=== PATIENT | female | born 1950 | race Two or more races ===

== ENCOUNTER 2024-03-27 09:22 | Emergency (ER) | payer MEDICARE, SELFPAY ==
[2024-03-27 09:24] VITALS: BP 134/64
--- NOTE | 2024-03-27 09:50 | ED.GENMED ---
History of Present Illness
<Toña Daniel PA-C - Last Filed: 03/27/24 17:31>
General
Chief Complaint: Urinary Symptoms
Source: patient
Exam Limitations: none
Time Seen by Provider: 03/27/24 09:49
Nursing documentation reviewed up to this point in time: agreed with
History of Present Illness
History of Present Illness:
73-year-old female presenting to the emergency department today with concerns of persistent urinary symptoms for a month. Patient reports that at the beginning of the month, she started develop burning with urination, urinary frequency, and lower
abdominal pain. Patient was seen by her primary care provider and a urinalysis was performed with urine culture. Patient was started on a course of Macrobid. Patient also was started on Azo. Patient reports that the course of Bactrim and Azo did
not resolve her symptoms. Patient denies fevers or chills, flank pain, blood in her urine. Patient states that when she gets UTIs she will usually have lower abdominal pain associated with it. Patient denies any nausea or vomiting. Patient
states that the Bactrim made her stomach more upset and so she only had 3 or so doses of this. Patient denies chest pain or shortness of breath, lightheadedness or dizziness. Patient denies any diarrhea or constipation. Of note, patient does have
a history of persistent abdominal pain in the past. She had a workup 2 years ago [facility] was evaluated by gastroenterology with unremarkable workup who suspect she might have a visceral hypersensitivity.
Past History
<Toña Daniel PA-C - Last Filed: 03/27/24 17:31>
Past History
ED Past Medical History: Cancer, Hypothyroidism and Other
ED Past Surgical History: Other
Social History
Alcohol: Occasional
Personal:
Living: with family
Review of Systems
<Toña Daniel PA-C - Last Filed: 03/27/24 17:31>
Review of Systems
All Other Systems: ROS reviewed and negative except as documented in HPI and ROS
Phy Exam
<Toña Daniel PA-C - Last Filed: 03/27/24 17:31>
Physical Exam
Physical Exam:
General: Patient is well appearing and in no acute distress; non-toxic
Skin: Warm and dry, no rashes or lesions
Head: Normocephalic, atraumatic
Eyes: Sclera non-icteric. EOMs intact. PERRLA.
Cardiac: Regular rate and rhythm, no murmurs
Peripheral Vascular: No lower extremity swelling or edema
Pulm: Normal respiratory effort
Abdomen: Abdomen is nondistended with no abdominal tenderness to palpation, no palpable masses
Neuro: CN II-XII intact, no focal neurologic deficits.
Psychiatric: Appropriate mood and affect.
Course
<Toña Daniel PA-C - Last Filed: 03/27/24 17:31>
Orders/Labs/Results
Orders:
Orders
03/27/24 09:55
Urinalysis Reflex To Culture Urgent
Date Specimen was Collected: 03/27/24
Time Specimen was Collected: 09:36
Urine Microscopic Reflex Cult Urgent
Urine Culture Urgent
KUSUM Source: U
Specimen Description:
Date Specimen was Collected: 03/27/24
Time Specimen was Collected: 09:36
03/27/24 10:19
Complete Blood Count/With Diff Urgent
Comprehensive Metabolic Panel Urgent
Lipase Urgent
Abnormal Lab Results
03/27/24 03/27/24
09:55 10:19
RBC 3.74 L 10^6/uL
(4.20-5.40)
Hct 36.0 L %
(37.0-47.0)
MCH 32.1 H pg
(27.0-31.0)
Monocytes % 9.8 H %
(1.7-9.3)
Urine Nitrite (Reflex) Positive A
(Negative)
Urine Bilirubin 2+ A
(Negative)
Urine Urobilinogen 3+ A
(Neg - 1+)
Urine Bacteria (Reflex) Few A
(Negative)
03/27/24 10:19
03/27/24 10:19
Vital Signs
Initial and Last Documented VS:
Initial Vital Signs
Temp Pulse Resp BP Pulse Ox
98.0 F 72 18 134/64 98
03/27/24 09:24 03/27/24 09:24 03/27/24 09:24 03/27/24 09:24 03/27/24 09:24
Last Documented Vital Signs
Temp Pulse Resp BP Pulse Ox
98.5 F 62 15 117/65 99
03/27/24 10:28 03/27/24 10:28 03/27/24 10:28 03/27/24 11:00 03/27/24 11:30
<Wen Galarza MD - Last Filed: 03/27/24 11:07>
Orders/Labs/Results
Orders:
Orders
03/27/24 09:55
Urinalysis Reflex To Culture Urgent
Date Specimen was Collected: 03/27/24
Time Specimen was Collected: 09:36
Urine Microscopic Reflex Cult Urgent
Urine Culture Urgent
KUSUM Source: U
Specimen Description:
Date Specimen was Collected: 03/27/24
Time Specimen was Collected: 09:36
03/27/24 10:19
Complete Blood Count/With Diff Urgent
Comprehensive Metabolic Panel Urgent
Lipase Urgent
Abnormal Lab Results
03/27/24 03/27/24
09:55 10:19
RBC 3.74 L 10^6/uL
(4.20-5.40)
Hct 36.0 L %
(37.0-47.0)
MCH 32.1 H pg
(27.0-31.0)
Monocytes % 9.8 H %
(1.7-9.3)
Urine Nitrite (Reflex) Positive A
(Negative)
Urine Bilirubin 2+ A
(Negative)
Urine Urobilinogen 3+ A
(Neg - 1+)
Urine Bacteria (Reflex) Few A
(Negative)
03/27/24 10:19
03/27/24 10:19
Vital Signs
Initial and Last Documented VS:
Initial Vital Signs
Temp Pulse Resp BP Pulse Ox
98.0 F 72 18 134/64 98
03/27/24 09:24 03/27/24 09:24 03/27/24 09:24 03/27/24 09:24 03/27/24 09:24
Last Documented Vital Signs
Temp Pulse Resp BP Pulse Ox
98.5 F 62 15 117/65 99
03/27/24 10:28 03/27/24 10:28 03/27/24 10:28 03/27/24 11:00 03/27/24 11:30
Dejuanlt;Toña Daniel PA-C - Last Filed: 03/27/24 17:31>
MDM/Problems Addressed
Differential Diagnosis Includes:
Differentials include acute cystitis, pyelonephritis, nephrolithiasis, interstitial cystitis
MDM/Problems Addressed:
Pelvic pain, burning with urination:
73-year-old female presenting to the emergency department today with concerns of persistent urinary symptoms for a month. Patient reports that at the beginning of the month, she started develop burning with urination, urinary frequency, and lower
abdominal pain. Patient was seen by her primary care provider and a urinalysis was performed with urine culture. Patient was started on a course of Macrobid. Patient also was started on Azo. At the time that the Macrobid was started, patient
had an outpatient urinalysis by her family doctor which resulted in mixed genital ilene which were not indicative of a urinary tract infection. (see update note).
She was subsequently seen by an urgent care provider who put her on Bactrim and at that time, the urinalysis did not suggest UTI (see scanned urgent care document from visit on 03/22/2024). On exam today, she is very well appearing and has no
abdominal tenderness to palpation. She is afebrile and her vitals are stable. Urine culture sent off. CBC/CMP show no leukocytosis, no LFT elevation. Of note, on review of previous records, patient has been evaluated multiple times for chronic
abdominal pain in the past, with largely unremarkable workup. Today, her urinalysis shows bilirubinuria but is not suggestive of UTI. I doubt an infectious cause to her symptoms. Interstitial cystitis is definitely on the differential for her. I
discussed with patient and son urology/urogyn evaluation. Patient in agreement. Patient stable for discharge.
Chronic conditions affecting care:
chronic abdominal pain, GERD, hypothyroidism, anemia
<Toña Daniel PA-C - Last Filed: 03/27/24 17:31>
*Pulse Oximetry
Patient hypoxic: no
*Critical Care Note
Total Time (30-74mins, 75-104mins- exclusive of procedures): Not Applicable
Data Reviewed
Review of Other/Old Records Reveals: Records (Reviewed discharge summary from 11/27/2021) and Discharge Summary (Reviewed recent discharge summary from 11/29/2021)
Source: patient and records
<Toña Daniel PA-C - Last Filed: 03/27/24 17:31>
Patient Management
Escalation/DeEscalation of care consider admission/obs:
Admit not indicated, patient stable for discharge
<Toña Daniel PA-C - Last Filed: 03/27/24 17:31>
Update Note
Update Note:
ED Attending Note
<Toña Daniel PA-C - Last Filed: 03/27/24 17:31>
-
Portions of this chart may have been created with voice recognition software.� Occasional wrong word or��sound alike� substitutions may have occurred due to the inherent limitations of voice recognition software.
<Wen Galarza MD - Last Filed: 03/27/24 11:07>
ED Attending Note
Patient seen and examined by attending physician: Yes
I performed the substantive portion of visit, reviewed & personally made and approve the management plan that is documented in note by myself or OMER.: Yes
ED Attending Note:
73-year-old female with complaints of persistent dysuria for several weeks. She saw her primary care doctor and was prescribed Macrobid without relief. She was then prescribed Azo without relief. She then went to an urgent care and was prescribed
Bactrim which she finished in completely. She continues to complain of dysuria, but denies urgency, frequency, fever, chills, nausea, vomiting, back or flank pain, hematuria. Patient also states that she has persistent upper abdominal pain for at
least several weeks if not longer. She has had an extensive workup including endoscopy without specific etiology identified. She was put on a PPI without relief of symptoms. Pain seems to be worse at night. On exam, abdomen soft nontender, heart
regular rate and rhythm, lungs CTA. Patient extremely well-appearing and nontoxic. Culture results from PCP unremarkable for actual UTI. Suspect dysuria not related to infection given unremarkable urine here as well as in the most recent past, no
CVA tenderness, fever, etc. to suggest ascending infection. Symptoms do not appear to be consistent with kidney stone or other acute intra-abdominal pathology. No pain or tenderness at this time, complaints have been relatively chronic. Discussed
with patient importance of follow-up and reasons to return to the ER.
Discharge Plan
Departure
Patient Disposition: Home (Routine Discharge)
Date of Disposition: 03/27/24
Time of Disposition: 11:13
Patient with high blood pressure during this ER visit?: Yes
Condition: Good
Discharge Problem:
Bladder spasm
Instructions: Pelvic Pain, BLOOD PRESSURE
Prescriptions:
No Action
gabapentin 300 MG capsule
300 mg PO BID
thyroid (pork) [[place] Thyroid] 30 MG tablet
30 mg PO DAILY
ergocalciferol (vitamin D2) 8,000 UNITS/ML drops
50,000 units PO SUWE Qty: 24 0RF
Rx Instructions:
2x weekly
sucralfate 1 GRAM tablet
1 g PO ACHS Qty: 12 0RF
pantoprazole 40 MG tablet,delayed release (DR/EC)
40 mg PO BID Qty: 60 0RF
Rx Instructions:
bid for 2 weeks then daily
gabapentin 300 MG capsule
600 mg PO HS
acetaminophen 325 MG tablet
650 mg PO BID
dicyclomine 10 MG capsule
10 mg PO TID
oxycodone 5 MG tablet
5 mg PO PRN PRN (Reason: Pain)
Referrals:
Pedrito Medina MD [Active] - Call in 1-3 days for appt
Leif Dior MD [Family Provider] -
Activity Restrictions/Additional Instructions:
We have attached a number for [facility]. Please call to schedule a follow up appointment.
You can also try calling [facility] at [phone].
Please return to the emergency department should you develop fevers or chills, intractable vomiting, blood in your urine, chest pain, shortness of breath, dizziness, lightheadedness, or any other signs or symptoms concerning to you.
Please follow-up with your primary care provider.
Interventions
Interventions:
*Risk Screen - Suicide Last Done: 03/27/24 09:27
*General Assessment Last Done: 03/27/24 09:27
*Neglect/Abuse Screening Last Done: 03/27/24 09:27
ED- Fall Risk Assessment Last Done: 03/27/24 10:28
*ED COVID-19 Vaccine History Last Done: 03/27/24 09:27
*Nursing Disposition Last Done: 03/27/24 11:19
ED-Female Genitourinary Assessment Last Done: 03/27/24 10:28
Discharge Date and Time
Discharge Date/Time: 03/27/24 11:56
Print Language: TURKMEN
[2024-03-27 10:11] LABS: Urine Albumin Negative (Neg - Trace); Urine Bilirubin 2+ (Negative); Urine Character Clear (Clear); Urine Glucose Negative (Negative); Urine Ketone Negative (Negative); Urine Leukocyte Negative (Negative); Urine Nitrite Positive (Negative); Urine Occult Blood Negative (Negative); Urine Urobilinogen 3+ (Neg - 1+)
[2024-03-27 10:23] LABS: Urine Color Orange
[2024-03-27 10:28] VITALS: BP 131/63; BMI 23.7
[2024-03-27 10:37] LABS: % Basophils 0.6 % (0-2); % Eosinophils 2.1 % (0-6); % Immature Granulocytes 0.2 % (0-0.5); % Lymphocytes 40.1 % (20.5-51.1); % Monocytes 9.8 % (1.7-9.3); % Neutrophils 47.2 % (42.2-75.2); Absolute Eosinophils 0.1 10^3/uL (0-0.7); Absolute Lymphocytes 2.1 10^3/uL (1.2-3.4); Absolute Monocytes 0.5 10^3/uL (0.1-0.6); Absolute Neutrophils 2.5 10^3/uL (1.4-6.5); Mean Corp Hgb Conc. 33.3 g/dL (33.0-37.0); Mean Corpuscular Hgb 32.1 pg (27.0-31.0); Mean Corpuscular Volume 96.3 fL (81.0-99.0); Mean Platelet Volume 9.3 fL (7.4-10.4); Nucleated Red Blood Cells % 0 %; Platelet Count 251 10^3/uL (130-400); Red Blood Cell Count 3.74 10^6/uL (4.20-5.40); Red Cell Dist. Width 12.4 % (11.5-14.5); White Blood Cell Count 5.2 10^3/uL (4.8-10.8)
[2024-03-27 10:46] LABS: Urine Amorphous Seen; Urine Squamous Cell 0-2 /LPF (Few)
[2024-03-27 10:47] LABS: Urine Bacteria Few (Negative); Urine Red Blood Cell 0-2 /HPF (0-2); Urine White Cell 0-2 /HPF (0-5)
[2024-03-27 10:56] LABS: ALT (SGPT) 13 U/L (0-35); AST (SGOT) 26 U/L (14-36); Albumin 4.1 g/dl (3.5-5.0); Alkaline Phosphatase 71 U/L (38-126); Blood Urea Nitrogen 12 mg/dl (7-17); Calcium 9.6 mg/dl (8.4-10.2); Carbon Dioxide 28 mmol/L (22-30); Chloride 107 mmol/L (98-107); Estimated Creatinine Clearance 43 ml/min; Glucose 77 mg/dl (70-99); Lipase 179 U/L (23-300); Potassium 4.4 mmol/L (3.5-5.1); Sodium 139 mmol/L (135-145); Total Bilirubin 0.7 mg/dl (0.2-1.3); Total Protein 6.6 g/dl (6.3-8.2); eGFR 59.12
[2024-03-27 11:00] VITALS: BP 117/65
== END 2024-03-27 11:56 | disposition home or self-care (01) ==
LOC: EMR 09:22
PROVIDERS: Physician Assistant; EMERGENCY PHYSICIAN Emergency Medicine; FAMILY PHYSICIAN Internal Medicine
DX: N32.89 Other specified disorders of bladder (principal); R03.0 Elevated blood-pressure reading, without diagnosis of hypertension
CPT/HCPCS: 99283; 80053; 81003; 81015; 83690; 85025; 87086

== ENCOUNTER → 2024-09-21 10:30 | Outpatient (REF) | payer MEDICARE, SELFPAY | LOC: RAD 10:30 | PROVIDERS: ATTENDING PHYSICIAN Urology; FAMILY PHYSICIAN Internal Medicine | DX: R30.0 Dysuria (principal); R10.9 Unspecified abdominal pain; R10.2 Pelvic and perineal pain | CPT/HCPCS: 74176 ==

== ENCOUNTER → 2025-04-11 11:04 | Outpatient (REF) | payer MEDICARE, SELFPAY | LOC: PAVMRI 11:04 | PROVIDERS: ATTENDING PHYSICIAN Orthopaedic Surgery; FAMILY PHYSICIAN Internal Medicine | DX: M54.12 Radiculopathy, cervical region (principal); M25.512 Pain in left shoulder; M25.511 Pain in right shoulder | CPT/HCPCS: 72141; 73221 ==

== ENCOUNTER 2025-04-18 11:04 | Outpatient (RCR) | payer MEDICARE, SELFPAY | END 2025-04-18 23:59 | disposition home or self-care (01) | LOC: RPT 11:04 | PROVIDERS: ATTENDING PHYSICIAN Urology; FAMILY PHYSICIAN Internal Medicine | DX: N32.81 Overactive bladder (principal); N30.10 Interstitial cystitis (chronic) without hematuria; M62.89 Other specified disorders of muscle; Z73.6 Limitation of activities due to disability; M81.0 Age-related osteoporosis without current pathological fracture; Z85.3 Personal history of malignant neoplasm of breast | CPT/HCPCS: 97110; 97140; 97161; 97530 ==

== ENCOUNTER 2025-05-13 14:06 | Outpatient (RCR) | payer MEDICARE, SELFPAY | END 2025-05-13 23:59 | disposition home or self-care (01) | LOC: RPT 14:06 | PROVIDERS: ATTENDING PHYSICIAN Urology; FAMILY PHYSICIAN Internal Medicine | DX: N32.81 Overactive bladder (principal); N30.10 Interstitial cystitis (chronic) without hematuria; M62.89 Other specified disorders of muscle; Z73.6 Limitation of activities due to disability; M81.0 Age-related osteoporosis without current pathological fracture; Z85.3 Personal history of malignant neoplasm of breast | CPT/HCPCS: 97110; 97140; 97530 ==

== ENCOUNTER → 2025-06-30 11:18 | Outpatient (REF) | payer MEDICARE, SELFPAY ==
[2025-06-30 12:02] LABS: Urine Character Clear (Clear)
[2025-06-30 12:09] LABS: Urine Squamous Cell >30 /LPF (Few)
== END ==
LOC: REG 11:18
PROVIDERS: ATTENDING PHYSICIAN Urology
DX: N39.0 Urinary tract infection, site not specified (principal)
CPT/HCPCS: 81003; 81015; 87086

== ENCOUNTER 2025-07-03 12:20 | Inpatient (IN) | payer MEDICARE, SELFPAY ==
--- NOTE | 2025-06-13 13:55 | CM ---
CM reviewed medical records. CM left message to discuss IA.
[2025-06-23 11:22] LABS: Hematocrit 36.4 % (37.0-47.0); Hemoglobin 11.5 g/dL (12.0-16.0); Mean Corp Hgb Conc. 31.6 g/dL (33.0-37.0); Mean Corpuscular Volume 97.6 fL (81.0-99.0); Platelet Count 266 10^3/uL (130-400); Red Cell Dist. Width 12.5 % (11.5-14.5)
[2025-06-23 11:35] LABS: ALT (SGPT) 16 U/L (0-35); AST (SGOT) 25 U/L (14-36); Albumin 4.2 g/dl (3.5-5.0); Alkaline Phosphatase 64 U/L (38-126); Blood Urea Nitrogen 14 mg/dl (7-17); Calcium 9.2 mg/dl (8.4-10.2); Carbon Dioxide 27 mmol/L (22-30); Chloride 108 mmol/L (98-107); Glucose 95 mg/dl (70-99); Potassium 5.1 mmol/L (3.5-5.1); Sodium 139 mmol/L (135-145); Total Protein 7.0 g/dl (6.3-8.2); eGFR > 60.00
[2025-06-23 12:01] LABS: Glycohemoglobin (HgbA1c) 5.4 % (4.0-5.9)
[2025-06-23 13:17] LABS: Iron 83 ug/dl (37-170)
[2025-06-23 13:26] LABS: Total Iron Binding Capacity 427 ug/dl (265-497)
[2025-06-23 14:36] LABS: Ferritin 15.8 ng/ml (11.1-264.0)
[2025-06-23 15:07] LABS: Folate 8.9 ng/ml (2.76-20); Vitamin B12 411 pg/ml (239-931)
[2025-07-03] VITALS (12 sets, daily range): BP systolic 114–180; BP diastolic 56–103
[2025-07-03] MEDS: CELEBREX 200 MG PO (11:38)
[2025-07-03] MEDS: TYLENOL 650 MG PO ×3 (11:38→19:40)
[2025-07-03] MEDS: NORMOSOL-R/PLASMALYTE-A 1000 IV ×2 (11:59→17:34)
--- NOTE | 2025-07-03 14:34 | W.PN.UPDATE ---
Update Note
Progress Note Update
R knee OA s/p R TKA w/ Dr Cisneros 07/03/25
DVT prophylaxis - enteric coated ASA 81 mg PO BID x4 weeks, b/l venous foot pumps
GERD with recurrent gastritis and Hiatal hernia - continue PPI BID
- Reduce ASA for DVT prophylaxis from 325 mg daily to 81 mg BID
- No other NSAIDs, Celebrex, or Decadron
- Will advise to take meds w/ food
Peripheral neuropathy - continue home Gabapentin
- Consider switch to Lyrica
Chronic multifactorial anemia - non-invasive hgb in AM
OA with L lateral condyle fracture, status post L TKA, 08/2021, by Dr Cisneros
Hypothyroidism
Left-sided breast cancer, 2007, status post left lumpectomy with lymph node dissection, chemotherapy, and radiation
Left upper extremity lymphedema secondary to the above
Osteoporosis
--- NOTE | 2025-07-03 15:40 | CM ---
CM was called to [facility] waiting room. Patient's stated that she feels he cannot care for her at home and is requesting placement.
CM sent preliminary referrals Z[facility] Julian, [facility] and [facility].
CM will await PT/OT evaluation.
PLAN: SNF, pending PT/OT.
[2025-07-03] MEDS: ROXICODONE 5 MG PO ×2 (16:25→18:21)
--- NOTE | 2025-07-03 17:11 | PTCARENOTE ---
Patient admitted from pacu post right total knee arthroplasty.The patient is alert and oriented.e denies any pain.Neurovascular assessment is within normal limits and ongoing.The right knee dressing is intact without drainage. Vital signs are
stable.The patient is in her bed with the call jerez in place.
[2025-07-03] MEDS: VITAMIN D3 (cholecalciferol) 25 MCG PO (17:34)
[2025-07-03] MEDS: NEURONTIN 300 MG PO ×2 (17:34→21:57)
[2025-07-03] MEDS: ARMOUR THYROID 30 MG PO (17:35)
[2025-07-03] MEDS: MAALOX 30 ML PO (18:32)
--- NOTE | 2025-07-03 19:04 | OR.RPT ---
Operative Report
Operative Report
Orthopaedic Surgery Operative Note
DATE OF OPERATION: 07-03-2025
PREOPERATIVE DIAGNOSES: Osteoarthritis, right knee.
POSTOPERATIVE DIAGNOSES: Osteoarthritis, right knee.
OPERATION PERFORMED:
1) Right total knee arthroplasty (CPT 45168)
2) Intraosseous administration of analgesic (CPT 32440)
SURGEON: Rob Cisneros MD
ASSISTANTS: Kalpesh Christie PA-C who helped with patient and limb positioning and retraction
ANESTHESIA: Spinal by anesthesia plus intraoperative infusion of morphine into the tibial metaphysis by Dr. Cisneros
COMPLICATIONS: None.
ESTIMATED BLOOD LOSS: 20mL
DRAINS: None
TOURNIQUET TIME: 50 minutes.
IMPLANTS:
- Jeffrey Persona CR Femur, size 4
- Jeffrey Persona tibia base plate, size A
- Jeffrey Persona ultracongruent articular surface, 10 mm
- DJO [place] bone cement
INDICATIONS: The patient presented to my office with debilitating right knee pain due to osteoarthritis. We reviewed the natural history of this problem, as well as the risks, benefits, and alternatives of various treatment options. The patient
exhausted all nonoperative treatment options and wished to proceed with knee replacement surgery. The patient understood the risks which included, but were not limited to, bleeding, infection, failure to relieve pain, more pain than preop, damage to
blood vessels and nerves, need for reoperation, mechanical failure of the implants, wound healing problems, stiffness, instability, blood clot, pulmonary embolism, myocardial infarction, pneumonia, arrhythmia, CVA, and . The patient accepted
these risks and wished to proceed. All questions were answered, and informed consent was obtained.
PROCEDURE IN DETAIL: The patient was identified in the preoperative holding area. The right knee was identified as the operative site. The patient was taken in the operating room and placed in a supine position on the operating table. Spinal
anesthesia was performed. IV antibiotics and tranexamic acid were administered. An SCD was placed on the left lower extremity. A well-padded tourniquet was placed on the proximal thigh. All bony prominences were well padded. The right lower
extremity was prepped and draped in the usual sterile fashion.
We performed a surgical time-out. An interarticular block was performed with local anesthetic with epinephrine. The limb was exsanguinated with an Esmarch bandage, then the tourniquet was inflated to 250 mmHg. I performed interosseous administration
of morphine-saline solution via a Jamshidi style intraosseous needle into the proximal medial tibial metaphysis as described by Shola Petersen MD. This was performed to aid in pain control. A midline skin incision was made followed by a medial
parapatellar arthrotomy. A subperiosteal peel was performed on the medial tibia. I excised part of the infrapatellar fat pad to improve our visualization as well as tissue over anterior femur. The patella was everted and the knee was flexed. I
excised the remnants of the anterior and posterior cruciate ligaments as well as tibial and femoral osteophytes with rongeurs.
The knee was flexed, and the extramedullary tibial cutting guide was aligned. [place] was aligned at neutral, rotation was centered on the tibial tubercle, and coronal alignment was aligned with the mechanical axis of the tibia and center of the ankle
joint. The cut height was 2mm off the medial tibia joint surface. The guide was secured into place. The MCL and LCL were protected. The tibia surface was cut. The cut surface was inspected after removal to ensure appropriate height and slope based
on the preoperative plan. The cut was checked with a drop millie. It was centered nicely at the ankle.
A drill was used to open the femoral canal. The intramedullary distal femoral cutting guide was inserted into the femur. This was set at 5 degrees +0. This was secured into place with three pins. The cut level was checked with an santo wing. The
distal femur was cut through the cutting guide. The IM guide was reinserted to double check that the level of resection was flush and in appropriate alignment.
[place]�s line and the transepicondylar axis were marked on the femur. The femoral sizing guide was applied to the anterior femur. Pins were inserted, and the 4-in-1 cutting guide was applied and secured into place. The rotation was compared to
[place]�s line, the transepicondylar axis, and the neutral tibia cut and was found to be appropriate. The width was checked and found to be appropriate and lateralized on the femur. The anterior, posterior, and chamfur cuts were made. A lamina
forklift supervisor was used to open the flexion gap, and posterior osteophytes were removed with a curved osteotome. The remnant medial and lateral meniscus were also removed. I prophylactically cauterized the lateral geniculate arteries. A 10mm spacer block
was applied to the flexion gap and was noted to be balanced medially and laterally. The knee was extended, and the block showed symmetric to extension and flexion gaps.
The tibia was exposed and sized. Rotation was set in line with the tibial tubercle and congruent with the femur. The trial was secured into place with two pins. The trial femur was impacted into place, and a trial articular surface was placed. The
knee was taken through range of motion and noted to be stable throughout the arc of motion without gaping or excess tension. The patella tracked centrally throughout the arc of motion without need for further releases. No full thickness cartilage
defects.
The trials were removed. The tibia keel was prepared with the punch and the drill. The bone surfaces were irrigated with sterile saline and dried. The cement was mixed in a vacuum mixer. Cement gun was used to apply cement to the tibial surface and
the undersurface of the tibial implant. Cement was pressurized into the tibial canal and tibia surface. The tibial component was impacted into place. Excess cement was removed. Cement was applied to the femoral surface and the femoral component. The
femoral component was impacted into place, and excess cement removed. A trial articular surface was inserted, and the knee was extended while the cement polymerized. The tourniquet was let down, and meticulous hemostasis was achieved. Dilute
betadine was poured into the wound and allowed to soak for 3 minutes. The knee was irrigated with copious normal saline.
Once the cement was polymerized, the trial articular surface was removed. Any excess cement was removed. The knee was trialed, and the final articular surface was selected and inserted into the tibial locking mechanism. The knee was reduced. A fresh
drape was applied to the surgical field.
The arthrotomy was closed with 0-PDS. Once closed, an interarticular block was performed with local anesthetic with epi. The deep dermal layer was closed with 2-0 monofilament, and the subcuticular skin was closed with 3-0 monofilament. A Dermabond
Prineo dressing was applied to the skin in full flexion. Once this was completely dry, a sterile waterproof dressing was applied.
The anesthesia team performed an adductor canal block in the OR. The patient awoke from anesthesia without any difficulties. The sponge and instrument counts were correct x2 at the end of the case.
Tomi Cisneros MD
[2025-07-03] MEDS: PROTONIX 40 MG PO (19:40)
[2025-07-03] MEDS: COLACE 100 MG PO (19:40)
[2025-07-03] MEDS: BACTROBAN 2% OINTMENT 1 APPLIC NASAL (19:40)
[2025-07-03] MEDS: SENOKOT 17.2 MG PO (19:40)
[2025-07-03] MEDS: ANCEF 5 IV (19:41)
[2025-07-03] MEDS: ASPIR LOW (ENTERIC COATED) 81 MG PO (19:41)
[2025-07-03] MEDS: DILAUDID 0.5 MG IV (19:41)
[2025-07-03] MEDS: TYLENOL PO (23:08)
[2025-07-04] VITALS (8 sets, daily range): BP systolic 105–110; BP diastolic 48–63; PULSE 92
[2025-07-04] MEDS: ANCEF 5 IV (03:09)
[2025-07-04] MEDS: TYLENOL PO (03:10)
[2025-07-04] MEDS: ROXICODONE 5 MG PO ×3 (08:31→23:14)
[2025-07-04] MEDS: SENOKOT 17.2 MG PO (08:31)
[2025-07-04] MEDS: TYLENOL 650 MG PO ×5 (08:31→23:12)
[2025-07-04] MEDS: NEURONTIN 300 MG PO ×3 (08:31→21:04)
[2025-07-04 08:32] LABS: Hepatitis C Antibody Negative (Negative)
[2025-07-04] MEDS: PROTONIX 40 MG PO ×2 (08:32→20:54)
[2025-07-04] MEDS: ASPIR LOW (ENTERIC COATED) 81 MG PO ×2 (08:32→20:54)
[2025-07-04] MEDS: BACTROBAN 2% OINTMENT 1 APPLIC NASAL ×2 (08:32→20:55)
[2025-07-04] MEDS: VITAMIN D3 (cholecalciferol) 25 MCG PO (08:32)
[2025-07-04] MEDS: ARMOUR THYROID 30 MG PO (08:32)
[2025-07-04] MEDS: COLACE 100 MG PO ×2 (08:32→20:54)
--- NOTE | 2025-07-04 09:09 | CM ---
Addendum entered by Mariela Durham RN 07/04/25 10:33:
CM updated [facility] with PT notes. CM awaiting acceptance.
Original Note:
Patient is agreeable to [facility]. Patient was at [facility] previously and did not have a good experience.
PLAN: SNF, pending acceptance.
--- NOTE | 2025-07-04 09:21 | W.PN.ORTHO ---
Today's Communication / Plan
-
Work w/ PT and OT as able.
D/c to SNF when clinically stable.
Assessment
.
Distal Motor Intact: Yes
Dressing:
Clean, dry and intact.
Assessment:
R knee OA s/p R TKA w/ Dr Cisneros 07/03/25
DVT prophylaxis - enteric coated ASA 81 mg PO BID x4 weeks, b/l venous foot pumps
GERD with recurrent gastritis and Hiatal hernia - continue PPI BID
- Reduce ASA for DVT prophylaxis from 325 mg daily to 81 mg BID
- No other NSAIDs, Celebrex, or Decadron
- Will advise to take meds w/ food
Peripheral neuropathy - continue home Gabapentin
- Consider switch to Lyrica
Chronic multifactorial anemia - non-invasive hgb during admission
OA with L lateral condyle fracture, status post L TKA, 08/2021, by Dr Cisneros
Hypothyroidism
Left-sided breast cancer, 2007, status post left lumpectomy with lymph node dissection, chemotherapy, and radiation
Left upper extremity lymphedema secondary to the above
Osteoporosis
Plan
.
Surgery / Date: R TKA w/ Dr Cisneros 07/03/25
DVT Prophylaxis: Aspirin (EC 81 mg PO BID x4 weeks )
Activity:
Out of bed.
PT/OT
Discharge Plan: SNF
Subjective
.
.:
Patient examined resting in chair after PT/OT.
Reporting high levels of R knee pain; however, appears comfortable.
Denies any new significant complaints.
Eager for potential d/c today.
Vital Signs and Labs
.
Vital Signs and Labs:
Lab Results
06/23/25 10:23
06/23/25 10:23
Temp Pulse Resp BP Pulse Ox
98 F 68 16 107/63 97
07/04/25 07:50 07/04/25 07:50 07/04/25 07:50 07/04/25 07:50 07/04/25 07:50
Physical Exam
-
HEENT: No pallor, cyanosis, or jaundice. Throat clear.
NECK: Supple. No JVD.
RESPIRATORY: Lungs clear to auscultation.
CVS: S1, S2 normal. RRR.
ABDOMEN: Soft, non-tender. No distension.
EXTREMITIES: Expected post-surgical R knee edema. Strength equal, no calf pain with palpation/dorsiflexion. Calves soft.
HELP DESK COORDINATOR: AOx3. No focal deficits. lead press operator grossly intact
--- NOTE | 2025-07-04 11:31 | CM ---
Addendum entered by Mariela Durham RN 07/04/25 11:47:
[facility]
Report
[phone]

Original Note:
Patient has been accepted by [facility].
[2025-07-04] MEDS: SENOKOT PO ×2 (20:54→21:01)
[2025-07-05] MEDS: TYLENOL PO (05:10)
[2025-07-05] MEDS: ROXICODONE 10 MG PO (05:21)
[2025-07-05] MEDS: DILAUDID 0.5 MG IV (06:29)
[2025-07-05 07:25] VITALS: BP 136/67
[2025-07-05] MEDS: VITAMIN D3 (cholecalciferol) 25 MCG PO (08:10)
[2025-07-05] MEDS: PROTONIX 40 MG PO ×2 (08:10→20:48)
[2025-07-05] MEDS: TYLENOL 650 MG PO ×4 (08:10→20:48)
[2025-07-05] MEDS: ASPIR LOW (ENTERIC COATED) 81 MG PO ×2 (08:10→20:48)
[2025-07-05] MEDS: COLACE PO ×3 (08:10→20:49)
[2025-07-05] MEDS: SENOKOT PO ×3 (08:10→20:49)
[2025-07-05] MEDS: ARMOUR THYROID 30 MG PO (08:10)
[2025-07-05] MEDS: NEURONTIN 300 MG PO ×3 (08:10→22:02)
[2025-07-05] MEDS: TORADOL 15 MG IV (10:15)
--- NOTE | 2025-07-05 10:27 | W.PN.ORTHO ---
Today's Communication / Plan
-
POD #[address] Cisneros.
-PT/OT as medically able.
-WBAT with walker.
-Adjusted pain medications to include oral hydromorphone, muscle relaxer q 8 hours, and IV toradol x 1 dose.
-Asp 81 mg po bid for dvt prophylaxis.
-Plan for d/c to [facility] tomorrow.
Assessment
.
Distal Motor Intact: Yes
Dressing:
Clean, dry and intact.
Assessment:
POD #[address] Cisneros.
-PT/OT as medically able.
-WBAT with walker.
-Adjusted pain medications to include oral hydromorphone, muscle relaxer q 8 hours, and IV toradol x 1 dose.
-Asp 81 mg po bid for dvt prophylaxis.
-Plan for d/c to [facility] tomorrow.
Plan
.
Surgery / Date: R TKA w/ Dr Cisneros 07/03/25
DVT Prophylaxis: Aspirin
Activity:
Out of bed.
PT/OT
Discharge Plan: SNF
Subjective
.
.:
Patient in obvious discomfort resting in bed upon my arrival. Despite IV dilaudid and oxy earlier, pain persists. She was able to get up and to the commode, but did not sleep well last night due to pain. States it feels like a cramping sensation
in her knee/thigh. She is unable to take NSAIDs due to GI discomfort. She is reporting some n/t of her right hand, but this is intermittent. She does have right shoulder discomfort and difficulty moving it, which was present before her surgery.
Vital Signs and Labs
.
Vital Signs and Labs:
Lab Results
06/23/25 10:23
06/23/25 10:23
Temp Pulse Resp BP Pulse Ox
98.3 F 82 18 136/67 96
07/05/25 07:25 07/05/25 07:25 07/05/25 07:25 07/05/25 07:25 07/05/25 07:25
Non-invasive Hgb result: 10.7
Physical Exam
-
Right knee: dressing is c/d/i. No drainage. Mild diffuse swelling. ROM 0-90 degrees with discomfort. Calf soft and nontender to palpation. N/v intact distally.
[2025-07-05] MEDS: DILAUDID 2 MG PO ×2 (11:34→18:13)
[2025-07-05] MEDS: LIDOCAINE 4% PATCH 1 PATCH TOPICAL (13:02)
[2025-07-05 15:25] VITALS: BP 106/50
[2025-07-05] MEDS: FLEXERIL 5 MG PO ×2 (16:57→22:02)
[2025-07-05] MEDS: REMOVE LIDOCAINE PATCH 1 PATCH REMOVE (20:49)
[2025-07-05 23:00] VITALS: BP 139/63
[2025-07-06] MEDS: TYLENOL PO ×2 (00:26→04:11)
[2025-07-06 07:45] VITALS: BP 141/90
[2025-07-06] MEDS: LIDOCAINE 4% PATCH 1 PATCH TOPICAL (07:51)
[2025-07-06] MEDS: FLEXERIL 5 MG PO (07:51)
[2025-07-06] MEDS: DILAUDID 2 MG PO (07:51)
[2025-07-06] MEDS: TYLENOL 650 MG PO ×2 (07:52→11:28)
[2025-07-06] MEDS: SENOKOT PO ×2 (07:52→12:27)
[2025-07-06] MEDS: PROTONIX 40 MG PO (07:52)
[2025-07-06] MEDS: COLACE PO ×2 (07:52→12:27)
[2025-07-06] MEDS: ARMOUR THYROID 30 MG PO (07:52)
[2025-07-06] MEDS: VITAMIN D3 (cholecalciferol) 25 MCG PO (07:52)
[2025-07-06] MEDS: ASPIR LOW (ENTERIC COATED) 81 MG PO (07:53)
[2025-07-06] MEDS: NEURONTIN 300 MG PO (07:53)
--- NOTE | 2025-07-06 11:03 | W.PN.ORTHO ---
Today's Communication / Plan
-
POD #[address] Cisneros.
-PT/OT as medically able.
-WBAT with walker.
-Adjusted pain medications to include muscle relaxer q 8 hours, lidocaine patches, and IV toradol x 1 dose.
-Asp 81 mg po bid for dvt prophylaxis.
-Plan for d/c to [facility] today.
Assessment
.
Dressing:
Clean, dry and intact.
Assessment:
POD #[address] Cisneros.
-PT/OT as medically able.
-WBAT with walker.
-Adjusted pain medications to include muscle relaxer q 8 hours, lidocaine patches, and IV toradol x 1 dose.
-Asp 81 mg po bid for dvt prophylaxis.
-Plan for d/c to [facility] today..
Plan
.
Surgery / Date: R TKA w/ Dr Cisneros 07/03/25
DVT Prophylaxis: Aspirin
Activity:
Out of bed.
PT/OT
Discharge Plan: Rehab
Subjective
.
.:
Patient resting comfortably in bed. Pain much better controlled with modifications of muscle relaxer and lidocaine patch.
Vital Signs and Labs
.
Vital Signs and Labs:
Lab Results
06/23/25 10:23
06/23/25 10:23
Temp Pulse Resp BP Pulse Ox
98 F 92 16 141/90 97
07/06/25 07:45 07/06/25 07:45 07/06/25 07:45 07/06/25 07:45 07/06/25 07:45
Non-invasive Hgb result: 11.5
Physical Exam
-
Right knee: moderate swelling. dressing c/d/i. no drainage. ROM 0-80 degrees. Calf soft and non tender to palpation. N/v intact distally.
--- NOTE | 2025-07-06 11:06 | W.DS.TRANS ---
DC Summary - [employer]
-
Discharge Instructions:
Sleep Apnea Risk Low
Discharge Diagnosis/Procedures R knee OA s/p R TKA w/ Dr Cisneros 07/03/25
Diet Regular
Additional Diets Adequate hydration, minimize opioids, and wear
TEDs stockings to prevent low blood pressure/
dizziness.
Activity As tolerated,With Walker
Driving Restrictions Not until seen by your Dr
Bathing Restrictions OK to Shower
Other Services PT,OT
Wound Care Leave dressing on until seen by surgeon's office
for follow-up on 07/16/25 at [place] office
11:00 am
Instructions:
Stand-Alone Forms: Total Hip/Knee Replacement D/C
Changes to Home Medications: No
Discharge Medications:
DC Medications w/original date entered in [facility]
gabapentin 300 mg capsule 300 mg PO TID Neurological Condition 08/05/21
thyroid (pork) 30 mg tablet ([place] Thyroid) 30 mg PO DAILY Thyroid 08/05/21
pantoprazole 40 mg tablet,delayed release 40 mg PO BID #60 tabs 10/31/21
cholecalciferol (vitamin D3) 25 mcg (1,000 unit) tablet (Vitamin D3) 25 mcg PO DAILY Supplement 06/13/25
acetaminophen 325 mg tablet 650 mg (2 x 325 mg) PO Q4HWA #60 tabs 07/04/25
aspirin 81 mg tablet,delayed release 81 mg PO BID #60 tabs 07/04/25
docusate sodium 100 mg capsule 100 mg PO BID #30 caps 07/04/25
magnesium hydroxide 400 mg/5 mL oral suspension (Milk of Magnesia) 30 ml PO HS PRN constipation #3,780 mL 07/04/25
ondansetron HCl 4 mg tablet 4 mg PO Q6H PRN nausea and vomiting #30 tabs 07/04/25
oxycodone 5 mg tablet 5 - 10 mg (1 - 2 x 5 mg) PO Q6H PRN moderate-severe pain #15 tabs 07/04/25
sennosides 8.6 mg tablet (Cecy-kathy) 17.2 mg (2 x 8.6 mg) PO BID #30 tabs 07/04/25
cyclobenzaprine 5 mg tablet 5 mg PO TID PRN muscle spasm 7 days #20 tabs 07/06/25
lidocaine 4 % topical patch 1 patch topical DAILY Pain 30 days 07/06/25
Home Medication Changes
Pending Results: No
[2025-07-06 11:50] VITALS: BP 130/65
--- NOTE | 2025-07-06 12:04 | CM ---
Pt for dc to [facility] today, 1p vegetable picker.
IMM Issued.
== END 2025-07-06 13:18 | DRG 470 ==
LOC: 2 SOUTH 12:20
PROVIDERS: Physician Assistant; ADMITTING PHYSICIAN Orthopaedic Surgery; FAMILY PHYSICIAN Internal Medicine
PROC: 0SRC0J9 Replacement of Right Knee Joint with Synthetic Substitute, Cemented, Open Approach (ICD-10-PCS; 2025-07-03)
DX: M17.11 Unilateral primary osteoarthritis, right knee (principal); K21.9 Gastro-esophageal reflux disease without esophagitis; G62.9 Polyneuropathy, unspecified; I89.0 Lymphedema, not elsewhere classified; D64.9 Anemia, unspecified; E03.9 Hypothyroidism, unspecified; M81.0 Age-related osteoporosis without current pathological fracture; Z98.41 Cataract extraction status, right eye; Z98.42 Cataract extraction status, left eye; Z79.82 Long term (current) use of aspirin; Z88.0 Allergy status to penicillin
CPT/HCPCS: 36415; 73560; 80053; 81003; 81015; 82607; 82728; 82746; 83036; 83540; 83550; 85027; 86803; 86850; 86900; 86901; 87070; 87086; 97116; 97162; 97166; 97535

== ENCOUNTER 2025-08-16 14:41 | Emergency (ER) | payer MEDICARE, SELFPAY ==
[2025-08-16 14:48] VITALS: BP 127/77
--- NOTE | 2025-08-16 17:10 | ED.GENMED ---
History of Present Illness
General
Chief Complaint: Urinary Symptoms
Source: patient
Time Seen by Provider: 08/16/25 17:01
History of Present Illness
History of Present Illness:
Of note, we attempted to use an superintendent colliery via language line, unable to properly connect after several attempts. Patient does speak Chinese but I wanted to try to communicate in her [place] language for completeness. This patient is a 74-year-old
female presents emergency department with complaints of dysuria that she has had for at least 3 to 4 months. She states that she was started on amitriptyline 2 days ago, without relief of symptoms. She noted that the dysuria described as 'burning'
has gotten progressively worse in the last 24 hours associated not feeling like she fully empties her bladder as of last night. She denies nausea, vomiting, fever, chills, flank pain, abdominal pain, chest pain, dyspnea, new swelling, hematuria,
constipation, or other complaints.
Past History
Past History
ED Past Medical History: Cancer, GERD, Hypothyroidism and Other (Neuropathy)
ED Past Surgical History: Orthopedic and Other (Lymph node resection left axilla)
Social History
Tobacco: Non-smoker
Alcohol: Occasional
Drug: None
Personal:
Living: with family
Phy Exam
Physical Exam
Physical Exam:
GENERAL: Alert , in no apparent distress
EYE: pupils equal and reactive
NECK: Supple, no significant adenopathy.
ENT: o/p clr, mmm.
CARDIAC: Regular rate and rhythm .
LUNGS: Clear breath sounds bilaterally, no acute respiratory distress, no wheezes/rales/rhonchi
ABDOMEN: Soft, without focal tenderness, no r/g, no cvat
NEUROLOGICAL: Alert and oriented, no focal neuro deficits
SKIN: Warm and dry, skin intact.
MUSCULOSKELETAL: Chronic left upper extremity lymphedema, otherwise no edema noted, well perfused.
PSYCH: Normal and appropriate interaction.
Course
Orders/Labs/Results
Orders:
Orders
12/20/25 17:13
Straight cath- Treatment ONCE
US Kidneys and US Bladder [US Renal With Bladder] Urgent
Comment:
Reason For Exam: difficulty urinating
08/16/25 17:36
Complete Blood Count/With Diff Urgent
Comprehensive Metabolic Panel Urgent
Urinalysis Reflex To Culture Urgent
Date Specimen was Collected: 08/16/25
Time Specimen was Collected: 16:52
Urine Microscopic Reflex Cult Urgent
Abnormal Lab Results
08/16/25
17:36
RBC 3.36 L 10^6/uL
(4.20-5.40)
Hgb 10.9 L g/dL
(12.0-16.0)
Hct 33.4 L %
(37.0-47.0)
MCV 99.4 H fL
(81.0-99.0)
MCH 32.4 H pg
(27.0-31.0)
MCHC 32.6 L g/dL
(33.0-37.0)
RDW 15.4 H %
(11.5-14.5)
Absolute Monos (auto) 0.8 H 10^3/uL
(0.1-0.6)
Monocytes % 11.6 H %
(1.7-9.3)
Sodium 133 L mmol/L
(135-145)
Ur Occult Blood Reflex 4+ A
(Negative)
Urine RBC 40-50 A /HPF
(0-2)
Urine Bacteria (Reflex) Few A
(Negative)
Urine Albumin (Reflex) 1+ A
(Neg - Trace)
08/16/25 17:36
08/16/25 17:36
Vital Signs
Initial and Last Documented VS:
Initial Vital Signs
Temp Pulse Resp BP Pulse Ox
98 F 107 16 127/77 97
08/16/25 14:48 08/16/25 14:48 08/16/25 14:48 08/16/25 14:48 08/16/25 14:48
Last Documented Vital Signs
Temp Pulse Resp BP Pulse Ox
98 F 107 16 132/58 100
08/16/25 14:48 08/16/25 14:48 08/16/25 14:48 08/16/25 17:30 08/16/25 17:45
*Pulse Oximetry
SaO2: 97
Oxygen Mode of Delivery: Room air
Patient hypoxic: no
*Critical Care Note
Total Time (30-74mins, 75-104mins- exclusive of procedures): Not Applicable
Update Note
Update Note:
Patient presents to the Emergency Department with __dysuria and inability to fully urinate
Number and Complexity of Problems Addressed at the Encounter
� Chronic conditions affecting care:
� Acute Exacerbation and/or Progression of Chronic Illness:
� Differential Diagnosis includes: But not limited to kidney stone, UTI, interstitial cystitis, obstruction, etc. etc.
Amount and/or Complexity of Data to be Reviewed and Analyzed
� I performed an independent evaluation of and my interpretation is:
EKG:
CT:
Xrays:
Laboratory Studies: Mild anemia close to baseline, white blood cell count normal. UA blood noted, not consistent with acute UTI
Other:No evidence for an acute abnormality of the kidneys or urinary bladder.
� Review of other/old records reveals:
� Clinical information was obtained by an independent historian:
� Prescriptions/Medications Considered but not given:
� Further testing considered but not performed:
Risk of Complications and/or Morbidity or Mortality of Patient Management
� Social determinants of health affecting care:
� Discussion with other providers (PCP, Hospitalists, Consultants, etc):
� Escalation of care including admission/observation vs risk of discharge considered: Patient advised of her findings including mild anemia, microscopic hematuria, etc. She was advised to see her doctor and close follow-up which
she will do on Monday. She is passing urine since straight cath here and denies a sense of fullness or inability to empty bladder at this time. She will need to monitor this closely at home. Patient advised about the importance of follow-up and
reasons return to the ER.
ED Attending Note
-
Portions of this chart may have been created with voice recognition software.� Occasional wrong word or��sound alike� substitutions may have occurred due to the inherent limitations of voice recognition software.
Discharge Plan
Departure
Patient with high blood pressure during this ER visit?: Yes
Condition: Good
Discharge Problem:
Dysuria, Hematuria
Instructions: Blood in the Urine (Hematuria), Adult (DC), Urinary retention (DC), BLOOD PRESSURE
Prescriptions:
No Action
gabapentin 300 MG capsule
300 mg PO TID
Rx Instructions:
PER SPOUSE; UNABLE TO VERIFY THE ACCURACY OF THE INFORMATION W/PT.
thyroid (pork) [[place] Thyroid] 30 MG tablet
30 mg PO DAILY
Rx Instructions:
PER SPOUSE; UNABLE TO VERIFY THE ACCURACY OF THE INFORMATION W/PT.
pantoprazole 40 MG tablet,delayed release (DR/EC)
40 mg PO BID Qty: 60 0RF
Rx Instructions:
PER SPOUSE; UNABLE TO VERIFY THE ACCURACY OF THE INFORMATION W/PT.
cholecalciferol (vitamin D3) [Vitamin D3] 25 mcg (1,000 unit) Tablet
25 mcg PO DAILY
Patient Comments:
PER SPOUSE; UNABLE TO VERIFY THE ACCURACY OF THE INFORMATION W/PT.
oxycodone 5 mg tablet
5 - 10 mg PO Q6H PRN (Reason: moderate-severe pain) Qty: 15 0RF
Rx Instructions:
1 tab for moderate pain, 2 if severe.
Dx total joint.
aspirin 81 mg Tablet,Delayed Release (Dr/Ec)
81 mg PO BID Qty: 60 0RF
Rx Instructions:
Take twice a day x4 weeks for blood clot prevention
docusate sodium 100 mg Capsule
100 mg PO BID Qty: 30 0RF
sennosides [Cecy-kathy] 8.6 mg Tablet
17.2 mg PO BID Qty: 30 0RF
acetaminophen 325 mg Tablet
650 mg PO Q4HWA Qty: 60 0RF
Rx Instructions:
DO NOT exceed >4000 mg daily.
ondansetron HCl 4 mg tablet
4 mg PO Q6H PRN (Reason: nausea and vomiting) Qty: 30 0RF
magnesium hydroxide [Milk of Magnesia] 400 mg/5 mL suspension
30 ml PO HS PRN (Reason: constipation) Qty: 3780 0RF
Rx Instructions:
Add to bowel regimen of Colace and Senna should no bowel movement occur within 48-72 hours post-surgery.
lidocaine 4 % Adhesive Patch,Medicated
1 patch topical DAILY 30 Days 0RF
cyclobenzaprine 5 mg tablet
5 mg PO TID PRN (Reason: muscle spasm) 7 Days Qty: 20 0RF
Referrals:
gottleib, h [Other]
Mar Rosas, DO [Active, Urology] - Follow up in 2-3 days
Leif Dior MD [Family Provider, Internal Medicine]
Activity Restrictions/Additional Instructions:
PLEASE SEE YOUR DOCTOR IN CLOSE FOLLOW UP. IF YOU DEVELOP FEVER, DIFFICULTY URINATING, ABDOMINAL PAIN, BLEEDING, OR OTHER WORRISOME SIGNS, GO TO THE ER IMMEDIATELY!
Interventions
Interventions:
*General Assessment Last Done: 08/16/25 17:55
*Neglect/Abuse Screening Last Done: 08/16/25 14:50
*ED COVID-19 Vaccine History Last Done: 08/16/25 17:55
*ED Influenza Vaccine History Last Done: 08/16/25 17:55
[facility] Fall Risk Assessment Tool Last Done: 08/16/25 17:40
*Risk Screen - Suicide (C-SSRS) Last Done: 08/16/25 14:50
ED-Female Genitourinary Assessment Last Done: 08/16/25 17:55
Discharge Date and Time
Print Language: GEORGIAN
[2025-08-16 17:30] VITALS: BP 132/58
[2025-08-16 17:47] LABS: Hematocrit 33.4 % (37.0-47.0); Hemoglobin 10.9 g/dL (12.0-16.0); Mean Corp Hgb Conc. 32.6 g/dL (33.0-37.0); Mean Corpuscular Volume 99.4 fL (81.0-99.0); Nucleated Red Blood Cells % 0 %; Platelet Count 379 10^3/uL (130-400); Red Cell Dist. Width 15.4 % (11.5-14.5)
[2025-08-16 17:50] LABS: Urine Character Clear (Clear)
[2025-08-16 17:58] LABS: Urine Squamous Cell 16-20 /LPF (Few)
[2025-08-16 18:00] LABS: Urine Red Blood Cell 40-50 /HPF (0-2)
[2025-08-16 18:06] LABS: ALT (SGPT) 14 U/L (0-35); AST (SGOT) 25 U/L (14-36); Albumin 4.3 g/dl (3.5-5.0); Alkaline Phosphatase 82 U/L (38-126); Blood Urea Nitrogen 15 mg/dl (7-17); Calcium 9.2 mg/dl (8.4-10.2); Carbon Dioxide 25 mmol/L (22-30); Chloride 102 mmol/L (98-107); Glucose 83 mg/dl (70-99); Potassium 4.7 mmol/L (3.5-5.1); Sodium 133 mmol/L (135-145); Total Protein 7.5 g/dl (6.3-8.2); eGFR > 60.00
[2025-08-16 19:01] VITALS: BP 134/48
[2025-08-16 20:00] VITALS: BP 117/58
== END 2025-08-16 20:49 | disposition home or self-care (01) ==
LOC: EMR 14:41
PROVIDERS: Emergency Medicine; Student in an Organized Health Care Education/Training Program; EMERGENCY PHYSICIAN Emergency Medicine; FAMILY PHYSICIAN Internal Medicine
DX: D64.9 Anemia, unspecified (principal); R31.29 Other microscopic hematuria; E03.9 Hypothyroidism, unspecified
CPT/HCPCS: 99284; 76770; 80053; 81003; 81015; 85025